=== PATIENT | male | born 1950 | race Caucasian/White ===

== ENCOUNTER → 2019-01-30 | Outpatient (CLI) | payer MEDICARE | LOC: LB.CLINIC 11:15 | PROVIDERS: ATTEND Nurse Practitioner Family | DX: Z00.00 Encounter for general adult medical examination without abnormal findings (principal); Z12.5 Encounter for screening for malignant neoplasm of prostate; Z13.6 Encounter for screening for cardiovascular disorders; Z13.1 Encounter for screening for diabetes mellitus | CPT/HCPCS: 36415; 80048; G0103 ==

== ENCOUNTER 2019-03-19 07:53 | Day surgery (SDC) | payer MEDICARE ==
[~2019-03-19 07:53] MED LIST: ceFAZolin 1 GM in Sodium Chloride 0.9% 50 ML IV ONE
[2019-03-19] MEDS ORDERED: Acetaminophen/HYDROcodone 325-5 MG Tab PO PRN (08:30)
[2019-03-19] MEDS ORDERED: ceFAZolin 1 GM Vial ONE (08:42)
[2019-03-19] MEDS: Lactated Ringers 1,000 ML IV SCH (08:53)
[2019-03-19] MEDS ORDERED: ceFAZolin 1 GM in Sodium Chloride 0.9% 50 ML IV SCH (09:00)
[2019-03-19] MEDS ORDERED: Propofol 200 MG/20 ML SDV ONE (10:00)
[2019-03-19] MEDS ORDERED: fentaNYL 100 MCG/2 ML SDV ONE (10:00)
== END 2019-03-19 11:55 | disposition home or self-care (01) ==
LOC: LB.SDS 07:53
PROVIDERS: ATTEND Orthopaedic Surgery
DX: G56.02 Carpal tunnel syndrome, left upper limb (principal)
CPT/HCPCS: 64721; J2704; J3010; J7120